=== PATIENT | female | born 1990 | race Two or more races ===

== ENCOUNTER 2021-08-11 17:41 | Inpatient (IN) | payer OTHER ==
[~2021-08-11] VITALS: Ht 160 cm; Wt 58.5 kg
== END 2021-08-13 09:07 | disposition home or self-care (01) | DRG 833 ==
LOC: LDR 17:41
PROVIDERS: ADMIT Obstetrics & Gynecology; ATTEND Obstetrics & Gynecology
PROC: 4A1HXCZ Monitoring of Products of Conception, Cardiac Rate, External Approach (ICD-10-PCS; principal; 2021-08-11)
PROC: BY4FZZZ Ultrasonography of Third Trimester, Single Fetus (ICD-10-PCS; 2021-08-11)
PROC: BU4CZZZ Ultrasonography of Uterus and Ovaries (ICD-10-PCS; 2021-08-11)
DX: O60.02 Preterm labor without delivery, second trimester (principal); Z3A.19 19 weeks gestation of pregnancy; Z20.822 Contact with and (suspected) exposure to COVID-19

== ENCOUNTER 2021-09-03 14:53 | Outpatient (CLI) | payer OTHER | END 2021-09-03 15:35 | disposition home or self-care (01) | LOC: NST 14:53 | PROVIDERS: ATTEND Obstetrics & Gynecology Maternal & Fetal Medicine | DX: Z34.82 Encounter for supervision of other normal pregnancy, second trimester (principal) ==

== ENCOUNTER 2021-12-10 15:00 | Inpatient (IN) | payer OTHER ==
[~2021-12-10] VITALS: Ht 160 cm; Wt 69.9 kg
[2021-12-28] MEDS ORDERED: PRENATAL TABLE1 EAC3 (15:52)
[2021-12-28] MEDS ORDERED: IRON18 MG (15:53)
== END 2021-12-30 13:20 | disposition home or self-care (01) | DRG 807 ==
LOC: LDR 12-28 06:52 → OB/GYN 12-28 16:04 → SURH 01-03 15:00
PROVIDERS: ADMIT Obstetrics & Gynecology Maternal & Fetal Medicine; ATTEND Obstetrics & Gynecology Maternal & Fetal Medicine
PROC: 10E0XZZ Delivery of Products of Conception, External Approach (ICD-10-PCS; principal; 2021-12-28)
PROC: 0W8NXZZ Division of Female Perineum, External Approach (ICD-10-PCS; 2021-12-28)
PROC: 4A1HXCZ Monitoring of Products of Conception, Cardiac Rate, External Approach (ICD-10-PCS; 2021-12-28)
DX: O80 Encounter for full-term uncomplicated delivery (principal); Z37.0 Single live birth; Z3A.39 39 weeks gestation of pregnancy; Z20.822 Contact with and (suspected) exposure to COVID-19